=== PATIENT | female | born 1945 | race Caucasian/White ===

== ENCOUNTER → 2017-02-03 | Outpatient (CLI) | payer MEDICARE, OTHER ==
--- NOTE | 2017-02-03 13:09 | RAD ---
Bone densitometry scan, 02/03/2017: History: Postmenopausal screening The lumbar spine and right hip were examined utilizing a DEXA technique. The bone mineral density in the lumbar spine as measured from the L1-L4 levels is 0.90 g/sq cm. This yields a T score of -2.3 compatible with osteopenia. The lumbar spine T score on the previous study of 11/27/2014 was -2.1. At the right hip the total T score is -2.5 compatible with osteoporosis. On the previous study, the left hip was examined demonstrating a T score of -2.2. IMPRESSION: 1. Osteopenia in the lumbar spine, slightly worse than on the 11/27/2014 study. 2. Osteoporosis at the right hip.
== END | disposition home or self-care (01) ==
LOC: DXRAD 12:38
PROVIDERS: ATTEND Nurse Practitioner Family
DX: M85.88 Other specified disorders of bone density and structure, other site (principal); M81.0 Age-related osteoporosis without current pathological fracture
CPT/HCPCS: 77080

== ENCOUNTER → 2017-05-24 | Outpatient (CLI) | payer MEDICARE, OTHER ==
--- NOTE | 2017-05-24 14:50 | RAD ---
DATE: 05/24/2017 EXAM: MAMMO LEW SCREENING BILATERAL HISTORY: Routine screening COMPARISON: 05/18/2016 This study was interpreted with the benefit of Computerized Aided Detection (CAD). The breast parenchyma is heterogeneously dense, which could reduce sensitivity of mammography. Breast parenchyma level C. FINDINGS: 2-D and 3-D tomosynthesis imaging was performed in CC and MLO projections. No new or enlarging breast densities are seen. There are tiny scattered microcalcifications with a distribution suggesting benign etiology. No suspicious microcalcifications have developed. IMPRESSION: Stable mammograms without evidence of malignancy. BI-RADS CATEGORY: 2 BENIGN FINDING(S) RECOMMENDED FOLLOW-UP: 12M 12 MONTH FOLLOW-UP PQRS compliance statement: Patient information was entered into a reminder system with a target due date for the next mammogram. Mammography is a sensitive method for finding small breast cancers, but it does not detect them all and is not a substitute for careful clinical examination. A negative mammogram does not negate a clinically suspicious finding and should not result in delay in biopsying a clinically suspicious abnormality. "Our facility is accredited by the [employer] Mammography Program."
== END | disposition home or self-care (01) ==
LOC: MAMMO 08:57
PROVIDERS: ATTEND Nurse Practitioner Family
DX: Z12.31 Encounter for screening mammogram for malignant neoplasm of breast (principal)
CPT/HCPCS: 77063; G0202; 77067